=== PATIENT | female | born 1945 | race Caucasian/White ===

== ENCOUNTER 2018-09-03 09:15 | Outpatient (CLI) | payer OTHER ==
[~2018-09-03 09:15] MED LIST: LASIX20 MG; NO RECUERDA; NORVASC10 MG
== END 2018-09-03 09:23 | disposition home or self-care (01) ==
LOC: TOM 09:15
DX: J34.2 Deviated nasal septum (principal); J37.0 Chronic laryngitis

== ENCOUNTER 2024-11-15 13:14 | Emergency (ER) | payer OTHER ==
[~2024-11-15] VITALS: Ht 167.6 cm; Wt 56.7 kg
[2024-11-15] MEDS ORDERED: SYNTHROID112 MCG PO (13:28)
[2024-11-15] MEDS ORDERED: LACTOBACILLUS ACIDOPHILUS 1 CAP CAP PO ONE (15:00)
[2024-11-15] MEDS ORDERED: 0.9 % SODIUM CHLORIDE 1,000 ML IV SCH (15:00)
[2024-11-15] MEDS ORDERED: METRONIDAZOLE/SODIUM CHLORIDE 500 MG/100 ML PIGGYBACK IV ONE (15:00)
[2024-11-15 16:07] LABS: BASO % 0.4 % (0.1-1.2); EOS # 0.01 (0.04-0.54); EOS % 0.4 % (0.7-7.0); HEMATOCRIT 30.1 % (34.1-44.9); HEMOGLOBIN 10.3 g/dL (11.2-15.7); LYMPH % 20.2 % (19.3-53.1); MEAN CORPUSCULAR HEMOGLOBIN 31.2 pg (25.6-32.2); MONO # 0.42 (0.24-0.82); NEUT # 1.54 (1.56-6.13); NEUT % 62.1 % (34.0-71.1); PLATELET COUNT 231 K/uL (163-369); RED CELL DISTRIBUTION WIDTH 12.3 % (11.6-14.4)
[2024-11-15 16:20] LABS: MONO % 16.9 % (4.7-12.5)
[2024-11-15 16:35] LABS: BILIRUBIN TOTAL 0.4 mg/dL (0.3-1.2); CREATININE SERUM 1.14 mg/dL (0.55-1.02); GFR 46.1; GLOBULINA 4.1 G/DL (2.4-3.5); POTASSIUM 3.5 mEq/L (3.5-5.1); TOTAL PROTEIN 7.1 gm/dL (6.4-8.2)
[2024-11-15 16:42] LABS: PH,URINE 5.5 (5.0-8.0); URINE APPEARANCE Cloudy; URINE BILIRRUBIN Negative (NEGATIVE); URINE BLOOD Negative; URINE COLOR Dark Yellow; URINE GLUCOSE Negative (NEGATIVE); URINE KETONE 15 (NEGATIVE); URINE LEUKOCYTE Small; URINE NITRATE Negative; URINE PROTEIN 30 (NEGATIVE)
[2024-11-15 16:43] LABS: URINE BACTERIA 225.1 uL (0.0-1933); URINE CAST 11.34 uL (0.0-1.40); URINE EPITHELIAL CELLS 58.7 uL (0.0-38.8); URINE RBC 18.8 uL (0.0-20.8)
[2024-11-15 17:24] LABS: URINE MUCUS HEAVY
== END 2024-11-15 20:03 | disposition home or self-care (01) ==
LOC: ER 13:14
PROVIDERS: Emergency Medicine
DX: B34.9 Viral infection, unspecified (principal); Z88.2 Allergy status to sulfonamides
CPT/HCPCS: 36415; 96365; 96366; 99283; J3490

== ENCOUNTER 2025-04-27 10:15 | Outpatient (CLI) | payer OTHER ==
[~2025-04-27 10:15] MED LIST changes: +SYNTHROID112 MCG PO
== END 2025-04-27 10:18 | disposition home or self-care (01) ==
LOC: TOM 10:15
DX: R10.13 Epigastric pain (principal)
CPT/HCPCS: 74160; Q9965